=== PATIENT | female | born 2000 | race Caucasian/White ===

== ENCOUNTER 2018-08-10 22:21 | Emergency (ER) | payer OTHER ==
[~2018-08-10] VITALS: Ht 157.5 cm; Wt 61.2 kg
--- NOTE | 2018-08-10 22:40 | ED.ADGEN ---
Past History Past Medical History: No Pertinent History, GERD Past Surgical History: Other Smoking: Non-smoker Alcohol Use: None Drug Use: None Adult General Chief Complaint Chief Complaint ".. I ve been having problems. ... with my stomach.. I seen Dr. Gonzalez... Sunday... and he was going to order a CT of my abd. for sunday.. but the pain h as gotten worse here.. on the Rt. mid to lower Rt.....I ve had Gastritis before . he put me on omeprazole.... 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 and back pain. No hx of bad food intake or specific ill contacts. Hx. prior GERD/ and esophagitis. No Hx. of over sea's travel. Had normal stool today. No hx tarry stools. No hx of . Does have irregular periods. Min. discomfort with periods. No use of NSAIDs. No use drugs or smoking. No hx of trauma. No hx renal stones. No family hx of renal stones, colitis. Father has hx of GERD. Recent Hx. driving home from college had Rt. leg pain that resolved. Pt. never had colon or EGD exam. Pt. normally follows with Dr. Gonzalez when home. Review of Systems Review of Systems Constitutional: Subject fever Eyes: Denies change in visual acuity, redness, or eye pain [] HENT: Denies nasal congestion or sore throat [] Respiratory: Denies cough or shortness of breath [] Cardiovascular: No additional information not addressed in HPI [] GI: Rt. lower and mid abdominal pain, nausea,. Denies vomiting, bloody stools or diarrhea [] Hx. of reflux. : Denies dysuria or hematuria [] Musculoskeletal: Denies back pain or joint pain [] Integument: Denies rash or skin lesions [] Neurologic: Denies headache, focal weakness or sensory changes [] Endocrine: Denies polyuria or polydipsia [] All other systems were reviewed and found to be within normal limits, except as documented in this note. Family History Family History Father GERD Current Medications Current Medications Current Medications Medications (Trade) Dose Ordered Sig/Yessi Start Time Stop Time Status Last Admin Dose Admin Famotidine (Pepcid Vial) 20 mg 1X ONCE 08/10/18 23:30 08/10/18 23:31 DC 08/10/18 23:24 20 MG Info (Do NOT chart on this entry -- for MONITORING) 1 each PRN DAILY PRN 08/10/18 23:45 08/11/18 02:10 DC Iohexol (Omnipaque 240 Mg/ml) 30 ml 1X ONCE 08/10/18 23:45 08/10/18 23:46 DC 08/11/18 01:02 30 ML Iohexol (Omnipaque 300 Mg/ml) 75 ml 1X ONCE 08/10/18 23:45 08/10/18 23:46 DC 08/11/18 01:02 75 ML Ketorolac Tromethamine (Toradol 30mg Vial) 30 mg 1X ONCE 08/10/18 23:30 08/10/18 23:31 DC 08/10/18 23:24 30 MG Lactated Ringer's 1,000 ml @ 1,000 mls/hr Q1H 08/10/18 23:30 08/11/18 00:29 DC 08/10/18 23:22 1,000 MLS/HR Magnesium Hydroxide (Milk Of Magnesia) 2,400 mg 1X ONCE 08/11/18 00:30 08/11/18 00:31 DC 08/11/18 00:21 2,400 MG Ondansetron HCl (Zofran) 8 mg 1X ONCE 08/10/18 23:30 08/10/18 23:31 DC 08/10/18 23:22 8 MG Allergies Allergies Allergies Coded Allergies Type Severity Reaction Last Updated Verified Penicillins Allergy Unknown HIVES 05/11/15 Yes Sulfa (Sulfonamide Antibiotics) Allergy Unknown HIVES 05/11/15 Yes codeine Allergy Unknown RASH 05/11/15 Yes Physical Exam Physical Exam Constitutional: Well developed, well nourished, Moderate acute distress, non- toxic appearance. [] HENT: Normocephalic, atraumatic, bilateral external ears normal, oropharynx moist, no oral exudates, nose normal. [] Eyes: PERRLA, EOMI, conjunctiva normal, no discharge. [] Neck: Normal range of motion, no tenderness, supple, no stridor. [] Cardiovascular:Heart rate regular rhythm, no murmur [] Lungs & Thorax: Bilateral breath sounds clear to auscultation [] Abdomen: Bowel sounds normal, soft, Rt. mid and lower tenderness, no masses, no pulsatile masses. Distended abdomen. No true rebound. Skin: Warm, dry, no erythema, no rash. Tattoos. Back: No tenderness, no CVA tenderness. [] Extremities: No tenderness, no cyanosis, no clubbing, ROM intact, no edema. [] No true psoas, heel tap or obturator. No cording noted. Neurologic: Alert and oriented X 3, normal motor function, normal sensory function, no focal deficits noted. [] Psychologic: Affect anxious, judgement normal, mood normal. [] Current Patient Data Vital Signs Vital Signs Date Time Temp Pulse Resp B/P (MAP) Pulse Ox O2 Delivery O2 Flow Rate FiO2 08/11/18 02:08 70 19 115/68 (84) 99 Room Air 08/10/18 22:25 98.3 Lab Results Laboratory Tests Test 08/10/18 22:30 08/10/18 22:45 08/10/18 23:15 Urine Collection Type Unknown Urine Color Straw Urine Clarity Clear Urine pH 7.0 Urine Specific [place] 1.015 Urine Protein Neg (NEG-TRACE) Urine Glucose (UA) Neg mg/dL (NEG) Urine Ketones (Stick) Neg mg/dL (NEG) Urine Blood Neg (NEG) Urine Nitrite Neg (NEG) Urine Bilirubin Neg (NEG) Urine Urobilinogen Dipstick 0.2 mg/dL (0.2 mg/dL) Urine Leukocyte Esterase Neg (NEG) Urine RBC 0 /HPF (0-2) Urine WBC 1-4 /HPF (0-4) Urine Squamous Epithelial Cells Occ /LPF Urine Bacteria Few /HPF (0-FEW) Urine Opiates Screen Neg (NEG) Urine Methadone Screen Neg (NEG) Urine Barbiturates Neg (NEG) Urine Phencyclidine Screen Neg (NEG) Urine Amphetamine/Methamphetamine Neg (NEG) Urine Benzodiazepines Screen Neg (NEG) Urine Cocaine Screen Neg (NEG) Urine Cannabinoids Screen Neg (NEG) Urine Ethyl Alcohol Neg (NEG) POC Urine HCG, Qualitative hcg negative (Negative) White Blood Count 8.3 x10^3/uL (4.0-11.0) Red Blood Count 4.78 x10^6/uL (3.50-5.40) Hemoglobin 14.1 g/dL (12.0-15.5) Hematocrit 41.2 % (36.0-47.0) Mean Corpuscular Volume 86 fL (79-100) Mean Corpuscular Hemoglobin 30 pg (25-35) Mean Corpuscular Hemoglobin Concent 34 g/dL (31-37) Red Cell Distribution Width 12.8 % (11.5-14.5) Platelet Count 218 x10^3/uL (140-400) Neutrophils (%) (Auto) 52 % (31-73) Lymphocytes (%) (Auto) 40 % (24-48) Monocytes (%) (Auto) 6 % (0-9) Eosinophils (%) (Auto) 1 % (0-3) Basophils (%) (Auto) 1 % (0-3) Neutrophils # (Auto) 4.3 x10^3uL (1.8-7.7) Lymphocytes # (Auto) 3.3 x10^3/uL (1.0-4.8) Monocytes # (Auto) 0.5 x10^3/uL (0.0-1.1) Eosinophils # (Auto) 0.1 x10^3/uL (0.0-0.7) Basophils # (Auto) 0.0 x10^3/uL (0.0-0.2) Sodium Level 139 mmol/L (136-145) Potassium Level 3.5 mmol/L (3.5-5.1) Chloride Level 104 mmol/L (98-107) Carbon Dioxide Level 25 mmol/L (21-32) Anion Gap 10 (6-14) Blood Urea Nitrogen 13 mg/dL (7-20) Creatinine 0.9 mg/dL (0.6-1.0) Estimated GFR (Cockcroft-Gault) 79.8 Glucose Level 90 mg/dL (70-99) Calcium Level 9.1 mg/dL (8.5-10.1) Total Bilirubin 0.5 mg/dL (0.2-1.0) Direct Bilirubin 0.1 mg/dL (0.0-0.2) Aspartate Amino Transferase (AST) 16 U/L (15-37) Alanine Aminotransferase (ALT) 19 U/L (14-59) Alkaline Phosphatase 58 U/L (46-116) Total Protein 7.6 g/dL (6.4-8.2) Albumin 3.5 g/dL (3.4-5.0) Amylase Level 60 U/L (25-115) Lipase 202 U/L (73-393) EKG EKG [] Radiology/Procedures Radiology/Procedures My interpretation of acute abdomen film shows no acute cardiopulmonary findings. No free air in the diaphragm. There is stool throughout the colon. Nonobstructive bowel gas pattern.[] Course & Med Decision Making Course & Med Decision Making Pertinent Labs and Imaging studies reviewed. (See chart for details) Keep on clear fluid diet only x 48 hrs No solids or milk products. Allow bowel rest. Follow up with Dr. Gonzalez and discuss a plan for further eval. if you continue to have pain. You may need a colon scopic or EGD. May even need laparoscopic eval if endometriosis a consideration. Take Tylenol or ibuprofen for pain. Return if any concerns. Push fluids. Review labs and x-rays with Dr. Gonzalez. [] Final Impression Final Impression 1. Abdomen Pain 2. Hx GERD 3. Constipation Dragon Disclaimer Dragon Disclaimer This electronic medical record was generated, in whole or in part, using a voice recognition dictation system. Discharge Summary Visit Information Final Diagnosis Problems Medical Problems: (1) Nausea & vomiting Status: Acute (2) Pain in the abdomen Status: Acute Brief Hospital Course Allergies Allergies Coded Allergies Type Severity Reaction Last Updated Verified Penicillins Allergy Unknown HIVES 05/11/15 Yes Sulfa (Sulfonamide Antibiotics) Allergy Unknown HIVES 05/11/15 Yes codeine Allergy Unknown RASH 05/11/15 Yes Vital Signs Vital Signs Date Time Temp Pulse Resp B/P (MAP) Pulse Ox O2 Delivery O2 Flow Rate FiO2 08/11/18 02:08 70 19 115/68 (84) 99 Room Air 08/10/18 22:25 98.3 Lab Results Laboratory Tests Test 08/10/18 22:30 08/10/18 22:45 08/10/18 23:15 Urine Collection Type Unknown Urine Color Straw Urine Clarity Clear Urine pH 7.0 Urine Specific [place] 1.015 Urine Protein Neg (NEG-TRACE) Urine Glucose (UA) Neg mg/dL (NEG) Urine Ketones (Stick) Neg mg/dL (NEG) Urine Blood Neg (NEG) Urine Nitrite Neg (NEG) Urine Bilirubin Neg (NEG) Urine Urobilinogen Dipstick 0.2 mg/dL (0.2 mg/dL) Urine Leukocyte Esterase Neg (NEG) Urine RBC 0 /HPF (0-2) Urine WBC 1-4 /HPF (0-4) Urine Squamous Epithelial Cells Occ /LPF Urine Bacteria Few /HPF (0-FEW) Urine Opiates Screen Neg (NEG) Urine Methadone Screen Neg (NEG) Urine Barbiturates Neg (NEG) Urine Phencyclidine Screen Neg (NEG) Urine Amphetamine/Methamphetamine Neg (NEG) Urine Benzodiazepines Screen Neg (NEG) Urine Cocaine Screen Neg (NEG) Urine Cannabinoids Screen Neg (NEG) Urine Ethyl Alcohol Neg (NEG) Bedside Urine HCG, Qualitative hcg negative (Negative) White Blood Count 8.3 x10^3/uL (4.0-11.0) Red Blood Count 4.78 x10^6/uL (3.50-5.40) Hemoglobin 14.1 g/dL (12.0-15.5) Hematocrit 41.2 % (36.0-47.0) Mean Corpuscular Volume 86 fL (79-100) Mean Corpuscular Hemoglobin 30 pg (25-35) Mean Corpuscular Hemoglobin Concent 34 g/dL (31-37) Red Cell Distribution Width 12.8 % (11.5-14.5) Platelet Count 218 x10^3/uL (140-400) Neutrophils (%) (Auto) 52 % (31-73) Lymphocytes (%) (Auto) 40 % (24-48) Monocytes (%) (Auto) 6 % (0-9) Eosinophils (%) (Auto) 1 % (0-3) Basophils (%) (Auto) 1 % (0-3) Neutrophils # (Auto) 4.3 x10^3uL (1.8-7.7) Lymphocytes # (Auto) 3.3 x10^3/uL (1.0-4.8) Monocytes # (Auto) 0.5 x10^3/uL (0.0-1.1) Eosinophils # (Auto) 0.1 x10^3/uL (0.0-0.7) Basophils # (Auto) 0.0 x10^3/uL (0.0-0.2) Sodium Level 139 mmol/L (136-145) Potassium Level 3.5 mmol/L (3.5-5.1) Chloride Level 104 mmol/L (98-107) Carbon Dioxide Level 25 mmol/L (21-32) Anion Gap 10 (6-14) Blood Urea Nitrogen 13 mg/dL (7-20) Creatinine 0.9 mg/dL (0.6-1.0) Estimated GFR (Cockcroft-Gault) 79.8 Glucose Level 90 mg/dL (70-99) Calcium Level 9.1 mg/dL (8.5-10.1) Total Bilirubin 0.5 mg/dL (0.2-1.0) Direct Bilirubin 0.1 mg/dL (0.0-0.2) Aspartate Amino Transf (AST/SGOT) 16 U/L (15-37) Alanine Aminotransferase (ALT/SGPT) 19 U/L (14-59) Alkaline Phosphatase 58 U/L (46-116) Total Protein 7.6 g/dL (6.4-8.2) Albumin 3.5 g/dL (3.4-5.0) Amylase Level 60 U/L (25-115) Lipase 202 U/L (73-393) Brief Hospital Course Ms. Ash is a 18 old female who presented with abdomen pain. No acute surgical finding on work up. Did have findings consistent with constipation. Pt. to follow up with primary. Discharge Information Condition at Discharge: Improved, Stable Disposition/Orders: D/C to Home Dischare Medications Current Medications Lactated Ringer's 1,000 ml @ 1,000 mls/hr Q1H IV Last administered on at 23:22; Admin Dose 1,000 MLS/HR; Start 08/10/18 at 23:30; Stop 08/11/18 at 00:29; Status DC Ondansetron HCl (Zofran) 8 mg 1X ONCE IV Last administered on 08/10/18at 23:22; Admin Dose 8 MG; Start 08/10/18 at 23:30; Stop 08/10/18 at 23:31; Status DC Famotidine (Pepcid Vial) 20 mg 1X ONCE IVP Last administered on 08/10/18at 23:24; Admin Dose 20 MG; Start 08/10/18 at 23:30; Stop 08/10/18 at 23:31; Status DC Ketorolac Tromethamine (Toradol 30mg Vial) 30 mg 1X ONCE IV Last administered on 08/10/18at 23:24; Admin Dose 30 MG; Start 08/10/18 at 23:30; Stop 08/10/18 at 23:31; Status DC Iohexol (Omnipaque 240 Mg/ml) 30 ml 1X ONCE PO Last administered on 08/11/18at 01:02; Admin Dose 30 ML; Start 08/10/18 at 23:45; Stop 08/10/18 at 23:46; Status DC Iohexol (Omnipaque 300 Mg/ml) 75 ml 1X ONCE IV Last administered on 08/11/18at 01:02; Admin Dose 75 ML; Start 08/10/18 at 23:45; Stop 08/10/18 at 23:46; Status DC Info (Do NOT chart on this entry -- for MONITORING) 1 each PRN DAILY PRN MC SEE COMMENTS; Start 08/10/18 at 23:45; Stop 08/11/18 at 02:10; Status DC Magnesium Hydroxide (Milk Of Magnesia) 2,400 mg 1X ONCE PO Last administered on 08/11/18at 00:21; Admin Dose 2,400 MG; Start 08/11/18 at 00:30; Stop 08/11/18 at 00:31; Status DC Dragon Disclaimer This chart was dictated in whole or in part using Voice Recognition software in a busy, high-work load, and often noisy Emergency Department environment. It may contain unintended and wholly unrecognized errors or omissions. CHON ROJAS MD Aug 10, 2018 22:40
[2018-08-10 22:59] LABS: BARBITURATES NEG (NEG); BENZODIAZEPINES NEG (NEG); CANNABINOIDS NEG (NEG); COCAINE NEG (NEG); METHADONE NEG (NEG); OPIATES NEG (NEG); PHENCYCLIDINE NEG (NEG)
[2018-08-10 23:00] LABS: AMPHETAMINE/METHAMPHETAMINE NEG (NEG)
[2018-08-10 23:03] LABS: BACTERIA,URINE FEW /HPF (0-FEW); BILIRUBIN,URINE NEG (NEG); CLARITY,URINE CLEAR; COLOR,URINE STRAW; GLUCOSE,URINE NEG (NEG); NITRITE,URINE NEG (NEG); RBC,URINE 0 /HPF (0-2); SQUAMOUS EPITHELIAL CELL,UR OCC /LPF; UROBILINOGEN,URINE 0.2 mg/dL (0.2 mg/dL)
[2018-08-10] MEDS ORDERED: IV RINGERS SOLUTION,LACTATED 1,000 ML IV SCH (23:30)
[2018-08-10] MEDS ORDERED: FAMOTIDINE 20 MG/2 ML VIAL IVP ONE (23:30)
[2018-08-10] MEDS ORDERED: KETOROLAC 30 MG/ML VIAL. IV ONE (23:30)
[2018-08-10] MEDS ORDERED: ONDANSETRON PF 4 MG/2 ML VIAL. IV ONE (23:30)
[2018-08-10] MEDS ORDERED: IOHEXOL 300 MG/ML 75 ML VIAL. IV ONE (23:45)
[2018-08-10] MEDS ORDERED: CONTRAST GIVEN MC PRN (23:45)
[2018-08-10] MEDS ORDERED: IOHEXOL 240 MG/ML 50ML VIAL. PO ONE (23:45)
[2018-08-10 23:55] LABS: BASO % 1 % (0-3); EOS # 0.1 x10^3/uL (0.0-0.7); EOS % 1 % (0-3); HEMATOCRIT 41.2 % (36.0-47.0); HEMOGLOBIN 14.1 g/dL (12.0-15.5); LYMPH # 3.3 x10^3/uL (1.0-4.8); LYMPH % 40 % (24-48); MEAN CORPUSCULAR HEMOGLOBIN 30 pg (25-35); MEAN CORPUSCULAR HGB CONC 34 g/dL (31-37); MEAN CORPUSCULAR VOLUME 86 fL (79-100); MONO # 0.5 x10^3/uL (0.0-1.1); MONO % 6 % (0-9); NEUT # 4.3 x10^3uL (1.8-7.7); NEUT % 52 % (31-73); PLATELET COUNT 218 x10^3/uL (140-400); RED BLOOD COUNT 4.78 x10^6/uL (3.50-5.40); RED CELL DISTRIBUTION WIDTH 12.8 % (11.5-14.5); WHITE BLOOD COUNT 8.3 x10^3/uL (4.0-11.0)
[2018-08-11 00:14] LABS: ALBUMIN 3.5 g/dL (3.4-5.0); CALCIUM 9.1 mg/dL (8.5-10.1); CREATININE 0.9 mg/dL (0.6-1.0); DIRECT BILIRUBIN 0.1 mg/dL (0.0-0.2); GFR 79.8; POTASSIUM 3.5 mmol/L (3.5-5.1); TOTAL BILIRUBIN 0.5 mg/dL (0.2-1.0); TOTAL PROTEIN 7.6 g/dL (6.4-8.2)
[2018-08-11] MEDS ORDERED: MAGNESIUM HYDROXIDE 2,400 MG/30 ML ORAL.SUSP. PO ONE (00:30)
--- NOTE | 2018-08-11 01:43 | RAD ---
Indication:RLQ abdominal pain. Radiating up. Patient shielded TECHNIQUE:PA chest and upright and supine views of abdomen pelvis COMPARISON: None FINDINGS: Heart is normal in size. Lungs are clear. No pneumoperitoneum. Moderate diffuse colonic stool burden. No abnormally dilated bowel loops or air-fluid levels. Visualized bones are within normal limits. IMPRESSION: No radiographic findings of small bowel obstruction. Electronically signed by: Ralph Fraga DO (08/11/2018 1:40 AM) [id number]
--- NOTE | 2018-08-11 01:45 | RAD ---
PQRS Compliance statement: One or more of the following individualized dose reduction techniques were utilized for this examination: 1. Automated exposure control. 2. Adjustment of the mA and/or kV according to patient size. 3. Use of iterative reconstruction technique. Indication:RLQ abdominal pain radiating upwards. Patient shielded TECHNIQUE: CT abdomen and pelvis with IV contrast with multiplanar reformats. COMPARISON: None FINDINGS: Heart is normal in size. No pericardial or pleural effusion. Clear lung bases. Liver, spleen, gallbladder, pancreas, adrenals and kidneys are within normal limits. No enlarged retroperitoneal or pelvic adenopathy. No free pelvic fluid or ascites. No bowel obstruction. Normal appendix. Anteverted uterus. Urinary bladder within normal limits. No pneumoperitoneum. No suspicious bony lesion. IMPRESSION: No acute findings. Electronically signed by: Ralph Fraga DO (08/11/2018 1:43 AM) [id number]
[2018-08-11 02:08] VITALS: BP 115/68
== END 2018-08-11 02:05 | disposition home or self-care (01) ==
LOC: ER 22:21
DX: K59.00 Constipation, unspecified (principal); R11.2 Nausea with vomiting, unspecified; K21.9 Gastro-esophageal reflux disease without esophagitis; N92.6 Irregular menstruation, unspecified; Z88.0 Allergy status to penicillin; Z88.2 Allergy status to sulfonamides; Z88.5 Allergy status to narcotic agent
CPT/HCPCS: 36415; 74022; 74177; 80048; 80076; 80307; 81001; 81025; 82150; 83690; 85025; 96361; 96374; 96375; 99285; J1885; J2405; J3490; J7120; Q9966; Q9967

== ENCOUNTER → 2018-11-25 | Outpatient (CLI) | payer OTHER ==
--- NOTE | 2018-11-25 09:53 | RAD ---
Examination: Ultrasound pelvis HISTORY: History of hematuria, right lower quadrant pain COMPARISON: None available FINDINGS: The uterus measures 6.7 x 2.9 x 2.9 cm. The endometrium measures 1.6 mm in thickness. The echogenicity of the uterus appears somewhat heterogeneous. The right ovary measures 2.7 x 1 0.1 to 1.0 cm. Left ovary measures 2.2 x 2.1 0.8 cm. Blood flow identified in the right and left ovaries appear small amount of fluid identified within the cervix. IMPRESSION: 1. Small amount of fluid in the cervix, with heterogeneous appearing uterus, nonspecific. Otherwise unremarkable exam. Electronically signed by: Aguila Archuleta MD (11/25/2018 9:50 AM) [id number]
== END | disposition home or self-care (01) ==
LOC: US 07:33
PROVIDERS: ATTEND Obstetrics & Gynecology
DX: N91.2 Amenorrhea, unspecified (principal); R10.31 Right lower quadrant pain
CPT/HCPCS: 76856

== ENCOUNTER 2020-04-17 19:46 | Emergency (ER) | payer OTHER ==
[~2020-04-17] VITALS: Ht 157.5 cm; Wt 61.8 kg
[2020-04-17 19:59] VITALS: BP 118/82
[2020-04-17] MEDS ORDERED: IV NORMAL SALINE 1,000ML 1,000 ML IV ONE (20:15)
[2020-04-17] MEDS ORDERED: KETOROLAC 30 MG/ML VIAL. IVP ONE (20:15)
[2020-04-17] MEDS ORDERED: PROCHLORPERAZINE 10 MG/2 ML VIAL. IV ONE (20:15)
[2020-04-17] MEDS ORDERED: ONDANSETRON PF 4 MG/2 ML VIAL. IVP ONE (20:15)
[2020-04-17] MEDS ORDERED: diphenhydrAMINE 50 MG/ML VIAL IVP ONE (20:15)
[2020-04-17] MEDS ORDERED: ONDANSETRON PF 4 MG/2 ML VIAL. ONE (20:29)
[2020-04-17 20:43] LABS: BASO % 1 % (0-3); EOS # 0.1 x10^3/uL (0.0-0.7); EOS % 1 % (0-3); HEMATOCRIT 40.3 % (36.0-47.0); HEMOGLOBIN 13.5 g/dL (12.0-15.5); LYMPH # 2.9 x10^3/uL (1.0-4.8); LYMPH % 38 % (24-48); MEAN CORPUSCULAR HEMOGLOBIN 29 pg (25-35); MEAN CORPUSCULAR HGB CONC 34 g/dL (31-37); MEAN CORPUSCULAR VOLUME 87 fL (79-100); MONO # 0.6 x10^3/uL (0.0-1.1); MONO % 8 % (0-9); NEUT # 4.1 x10^3uL (1.8-7.7); NEUT % 53 % (31-73); PLATELET COUNT 227 x10^3/uL (140-400); RED BLOOD COUNT 4.66 x10^6/uL (3.50-5.40); RED CELL DISTRIBUTION WIDTH 12.7 % (11.5-14.5); WHITE BLOOD COUNT 7.8 x10^3/uL (4.0-11.0)
--- NOTE | 2020-04-17 20:47 | RAD ---
EXAM: Chest, single view. HISTORY: Cough. COMPARISON: None. FINDINGS: A frontal view of the chest is obtained. There is no infiltrate, pleural effusion or pneumo thorax. The heart is normal in size. IMPRESSION: No acute pulmonary finding. Electronically signed by: China Altman MD (04/17/2020 8:45 PM) [facility]
--- NOTE | 2020-04-17 20:51 | PHYS DOC ---
Past History Past Medical History: GERD, IBS, Pneumonia (ERLIN GENTILE APRN) Past Surgical History: Tonsillectomy, Other Additional Past Surgical Histo: WISDOM TEETH (ERLIN GENTILE APRN) Smoking: Non-smoker Alcohol Use: Occasionally Drug Use: None (ERLIN GENTILE APRN) Adult General Chief Complaint Chief Complaint: COUGH HPI HPI Patient is a 20-year-old female presents emergency department complaining of waking up 3 days ago with a migraine headache that was unrelieved with her migraine regimen at home, patient states she did not have an aura prior to getting this particular migraine. Patient states that this migraine has presented like all her other migraines in the past, does not state this is the worst headache she has had in her life. Patient does state that she has had a dry cough with mild shortness of breath for the past 3 days and also has some slight nausea. Patient reports her pain at 8/10 on a 1-10 pain scale. Patient denies any abdominal pain, constipation, diarrhea, or seeing blood in her stools. Patient denies any vaginal discharge, any UTI type signs and symptoms, denies STI concerns. Patient states that she fears she might have the Covid virus as she has possibly been exposed recently. Patient wishes to have a Covid test done today. Patient denies any loss of smell or loss of taste. Patient denies chest pains or chest palpitations. Patient denies any recent fever or chills. Patient denies any other physical complaints or physical concerns today. (ERLIN GENTILE APRN) Review of Systems Review of Systems 14 body systems of review of systems have been reviewed. See HPI for pertinent positives and negative responses, otherwise all other systems are negative, nonpertinent or noncontributory. (ERLIN GENTILE APRN) Current Medications Current Medications Current Medications Medications (Trade) Dose Ordered Sig/Yessi Start Time Stop Time Status Last Admin Dose Admin Diphenhydramine HCl (Benadryl) 25 mg 1X ONCE 04/17/20 20:15 04/17/20 20:35 DC 04/17/20 20:36 25 MG Ketorolac Tromethamine (Toradol 30mg Vial) 30 mg 1X ONCE 04/17/20 20:15 04/17/20 20:35 DC 04/17/20 20:36 30 MG Ondansetron HCl (Zofran) 4 mg STK-MED ONCE 04/17/20 20:29 04/17/20 20:35 DC Prochlorperazine Edisylate (Compazine) 10 mg 1X ONCE 04/17/20 20:15 04/17/20 20:35 DC 04/17/20 20:37 10 MG Sodium Chloride 1,000 ml @ 1,000 mls/hr 1X ONCE 04/17/20 20:15 04/17/20 21:14 04/17/20 20:36 1,000 MLS/HR (ERLIN GENTILE APRN) Allergies Allergies Allergies Coded Allergies Type Severity Reaction Last Updated Verified Penicillins Allergy Unknown HIVES 05/11/15 Yes Sulfa (Sulfonamide Antibiotics) Allergy Unknown HIVES 05/11/15 Yes codeine Allergy Unknown RASH 05/11/15 Yes (ERLIN GENTILE APRN) Physical Exam Physical Exam Constitutional: Well developed, well nourished, no acute distress, non-toxic appearance. HENT: Normocephalic, atraumatic, bilateral external ears normal, oropharynx moist, no oral exudates, nose normal. Eyes: PERRLA, EOMI, conjunctiva normal, no discharge. No photophobia appreciated Neck: Normal range of motion, no tenderness, supple, no stridor. Cardiovascular:Heart rate regular rhythm, no murmur, heart sounds S1-S2 heard Lungs & Thorax: Bilateral breath sounds clear to auscultation all lung ortega Abdomen: Bowel sounds normal, soft, no tenderness, no masses, no pulsatile masses. Skin: Warm, dry, no erythema, no rash. Back: No tenderness, no CVA tenderness. Extremities: No tenderness, no cyanosis, no clubbing, ROM intact, no edema. Neurologic: Alert and oriented X 3, normal motor function, normal sensory function, no focal deficits noted. Psychologic: Affect normal, judgement normal, mood normal. (ERLIN GENTILE APRN) Current Patient Data Vital Signs Vital Signs Date Time Temp Pulse Resp B/P (MAP) Pulse Ox O2 Delivery O2 Flow Rate FiO2 04/17/20 19:59 98.4 88 18 118/82 (94) 99 Room Air (ERLIN GENTILE APRN) EKG EKG [] (ERLIN GENTILE APRN) Radiology/Procedures Radiology/Procedures SEX: F EXAM STATUS: REG ER ORD. PHYSICIAN: ERLIN GENTILE APRN REASON: COUGH, COVID EXPOSURE PROCEDURE: CHEST AP ONLY EXAM: Chest, single view. HISTORY: Cough. COMPARISON: None. FINDINGS: A frontal view of the chest is obtained. There is no infiltrate, pleural effusion or pneumothorax. The heart is normal in size. IMPRESSION: No acute pulmonary finding. Electronically signed by: China Martins MD (04/17/2020 8:45 PM) [facility] DICTATED AND SIGNED BY: CHINA MARTINS MD DATE: 04/17/202044 CC: ERLIN GENTILE APRN; EMERGENCY,DEPARTMENT; PABLO BOWERS MD ~MTH0 0 (ERLIN GENTILE APRN) Heart Score Risk Factors: Risk Factors: DM, Current or recent (<one month) smoker, HTN, HLP, family history of CAD, obesity. Risk Scores: Risk Factors: DM, Current or recent (<one month) smoker, HTN, HLP, family history of CAD, obesity. (ERLIN GENTILE APRN) Course & Med Decision Making Course & Med Decision Making Pertinent Labs and Imaging studies reviewed. (See chart for details) 20-year-old female presents emergency department complaint of migraine headache is less than 3 days without relief with her migraine headache regimen at home. Patient states that she may have been in contact with someone that has a COVID- 19 virus. Related to patient's headache that is usually relieved with home migraine regimen and recent possible exposure to COVID-19 virus, a COVID-19 test was performed in the ER today. Patient was also given a headache cocktail. Upon reevaluation of the patient, patient's headache has been relieved, patient states her pain is now 0. Patient states that her shortness of breath has been relieved. Patient serum labs were negative for acute infection or acute process. Patient's urine was not infected, the patient was not in per urine test. Patient's chest x-ray was negative for acute process read by house radiologist interpretation. Discussed with patient that COVID-19 virus results are pending and should be available within the next 48 hours. Patient gave verbal understanding of discharge home instructions, COVID-19 instructions, patient given a work excuse for 2 days off pending results of the COVID-19 virus that will be extended to 10 days in the event that Covid test is positive. Patient gave verbal understanding of return to emergency department questions or concerns, had no further questions or concerns discharged home without incident. Impression: #1 migraine headache #2 PUI #3 cough #4 shortness of breath with exposure to the COVID-19 virus (ERLIN GENTILE APRN) Course & Med Decision Making I oversaw on the above date of service of this patient and discussed the care with the SECURITY EXPERT. I agree with the findings, plan of care, and disposition as do cumdandre. (IVON ROBLERO DO) Dragon Disclaimer Dragon Disclaimer This electronic medical record was generated, in whole or in part, using a voice recognition dictation system. (ERLIN GENTILE APRN) Departure Departure: Impression: Primary Impression: Migraine headache without aura Additional Impressions: Person under investigation for COVID-19 Cough Shortness of breath with exposure to COVID-19 virus Counseled about COVID-19 virus infection Educated about COVID-19 virus infection Disposition: DC HOME SELF CARE/HOMELESS Condition: GOOD Referrals: PABLO BOWERS MD (PCP) Patient Instructions: Migraine Headache Additional Instructions: You have been treated today for migraine headache, you have been tested for the COVID-19 virus, you have been given a work excuse for 2 days pending results, if results are positive then you should self isolate for a total of 10 days from the time your symptoms started. You stated your symptoms started 3 days ago which would have been April 15, 2020. If your results are negative you may return to regular work when results posted by April 20, if your results come back positive, you may return to work on April 26. Please return to the emergency department for worsening symptoms or other concerns. You have been given a instruction list and education material regarding the COVID-19 virus attached to this document. EMERGENCY DEPARTMENT GENERAL DISCHARGE INSTRUCTIONS Thank you for coming to [facility] (ED) today and trusting us with you care. We trust that you had a positivie experience in our Emergency Department. If you wish to speak to the department management, you may call the director at [phone]. YOUR FOLLOW UP INSTRUCTIONS ARE FOLLOWS: 1. Do you have a private Doctor? If you do not have a private doctor, please ask for a resource list of physicians or clinics that may be able to assist you with follow up care. 2. The Emergency Physician has interpreted your x-rays. The X-Ray specialist will also review them. If there is a change in the findings, you will be notified in 48 hours when at all possible. 3. A lab test or culture has been done, your results will be reviewed and you will be notified if you need a change in treatment. ADDITIONAL INSTRUCTIONS AND INFORMATION: 1. Your care today has been supervised by a physician who is specially trained in emergency care. Many problems require more than one evaluation for a complete diagnosis and treatment. We recommend that you schedule your follow up appointment as recommended to ensure complete treatment of you illness or injury. If you are unable to obtain follow up care and continue to have a problem, or if your condition worsens, we recommend that you return to the ED. 2. We are not able to safely determine your condition over the phone nor are we able to give sound medical advice over the phone. For these safety reasons, if you call for medical advice we will ask you to come to the ED for further evaluation. 3. If you have any questions regarding these discharge instructions please call the ED at [phone]. SAFETY INFORMATION: In the interest of safety, wellness, and injury prevention; we encourage you to wear your sealbelt, if you smoke; quite smoking, and we encourage family to use a protective helmet for bicycling and other sporting events that present an increased risk for head injury. IF YOUR SYMPTOMS WORSEN OR NEW SYMPTOMS DEVELOP, OR YOU HAVE CONCERNS ABOUT YOUR CONDITION; OR IF YOUR CONDITION WORSENS WHILE YOU ARE WAITING FOR YOUR FOLLOW UP APPOINTMENT; EITHER CONTACT YOUR PRIMARY CARE DOCTOR, THE PHYSICIAN WHOSE NAME AND NUMBER YOU WERE GIVEN, OR RETURN TO THE ED IMMEDIATELY. You have been tested for or diagnosed with COVID-19. It is an infection caused by a new type of coronavirus. COVID-19 will cause cold-like or mild flu symptoms in most. It can cause more severe symptoms like problems breathing in some. There is no treatment for COVID-19. The body will clear the infection over time. Self-care will help to ease discomfort. Steps to Take: Self-Care Rest as needed. Healthy habits may help you feel better. Steps include: Choose healthy foods including fruits and vegetables. Drink water throughout the day. Get plenty of sleep each night. If you smoke, try to quit. It may ease breathing. Avoid alcohol. Keep Others Healthy The virus can spread to others. Droplets are released every time you sneeze or cough. The droplets can get into the mouth, nose, or eyes of people near you and lead to infection. To lower the chances of spreading COVID-19 to others: Stay at home until your doctor has said it is safe to leave. If you tested positive this will mean staying isolated until both of the following are true: At least 7 days have passed since the start of illness. You are free of fever for at least 72 hours without the use of medicine. During this time: - Avoid public areas, events, or transportation. Do not return to work or school until your doctor has said it is safe to do so. - Call ahead if you need to go to a medical center. Let them know you may have COVID-19. It will help them guide you where to go. They may also ask you to wear a facemask when you come to the office. - If you call for emergency medical services, let them know you may have COVID- 19. While at home: - Try to avoid close contact with others. Stay about 6 feet away. - If possible, spend most of your time in a separate room from others. - Use a face mask if you will be in close contact with others such as sharing a room or vehicle. - Have someone wipe down common surfaces in the home. Use household apron man every day on areas like doorknobs, counters, or sinks. - Cough or sneeze into a tissue. Throw the tissue away right after use. If a tissue is not available, cough or sneeze into your elbow. - Wash your hands often. Wash them after sneezing or coughing. Use soap and water and wash for at least 20 seconds. Alcohol based hand bell cleaner can be used if soap and water is not available. - Do not prepare food for others. Avoid sharing personal items like forks, spoons, or toothbrushes. - Avoid close contact with pets while you are sick. There is no evidence of the virus passing to pets. This is a safety step until more is known about this virus. Isolation can be frustrating. Social interaction can help. Keep in touch with friends and family through phone and tech options. You can still interact with others in your home, just keep a safe distance of about 6 feet. Follow-up: Your doctors office will check in with you to see if there are any changes in your health. You may be asked to keep track of symptoms to share with them. They will also let you know when you are clear to be in public again. Problems to Look Out For: Contact your doctor if your recovery is not going as you expect. Get emergency care if you have problems such as: - Trouble breathing - Nonstop chest pain or pressure - Changes in awareness, confusion, or problems waking - Lips or face have bluish color - Worsening of symptoms If you think you have an emergency, call for emergency medical services right away. As taken from [facility] [place] Health Problem Qualifiers Primary Impression: Migraine headache without aura Status migrainosus presence: without status migrainosus Intractability: not intractable Qualified Codes: G43.009 - Migraine without aura, not intractable, without status migrainosus ERLIN GENTILE APRN Apr 17, 2020 20:51 IVON ROBLERO DO Apr 18, 2020 01:34
[2020-04-17 21:32] LABS: CALCIUM 8.9 mg/dL (8.5-10.1); CREATININE 0.9 mg/dL (0.6-1.0); GFR 78.3; POTASSIUM 3.7 mmol/L (3.5-5.1)
[2020-04-17 21:45] LABS: ALBUMIN 3.7 g/dL (3.4-5.0); ALBUMIN/GLOBULIN RATIO 0.9 (1.0-1.7); TOTAL BILIRUBIN 0.2 mg/dL (0.2-1.0); TOTAL PROTEIN 7.6 g/dL (6.4-8.2)
--- NOTE | 2020-04-19 09:48 | NUR ---
IP: attempt to notify patient of COVID result, left callback message.
--- NOTE | 2020-04-19 10:29 | NUR ---
IP: patient notified of COVID result.
== END 2020-04-17 21:30 | disposition home or self-care (01) ==
LOC: ER 19:46
DX: G43.009 Migraine without aura, not intractable, without status migrainosus (principal); Z20.828 Contact with and (suspected) exposure to other viral communicable diseases; R05 Cough; R06.02 Shortness of breath; R11.0 Nausea; K21.9 Gastro-esophageal reflux disease without esophagitis; Z98.890 Other specified postprocedural states; Z90.89 Acquired absence of other organs; Z88.0 Allergy status to penicillin; Z88.2 Allergy status to sulfonamides; Z88.5 Allergy status to narcotic agent
CPT/HCPCS: 36415; 71045; 80053; 85025; 96361; 96374; 96375; 99284; J0780; J1200; J1885; J2405; J7030; U0003; C9803